=== PATIENT | male | born 1990 | race Caucasian/White ===

== ENCOUNTER → 2021-07-22 08:06 | Outpatient (CLI) | payer OTHER, SELFPAY ==
--- NOTE | 2021-07-22 08:10 | DI.MRI.S_ITS ---
PROCEDURE: MR LOWER LEG LT WO CON COMPARISON: None. INDICATIONS: STRAIN OF MUSCLE AT LOWER LEFT LEG TECHNIQUE: Noncontrast coronal and sagittal T1 spin echo and STIR, and axial T1 spin echo and T2 fast spin echo with fat saturation through the left lower leg. FINDINGS: Bones: No acute trabecular bone injury or osseous fracture. No abnormal marrow signal. Soft tissues: Within the medial head of the gastrocnemius muscle, there is an oval fluid collection measuring approximately 6.0 x 4.3 x 11.1 cm with intrinsic [id number] signal and a layering fluid-fluid level as well as a peripheral hypointense rim. Findings are consistent with a chronic hematoma. There is mild edema within the medial head of the gastrocnemius muscle and a small amount of overlying edema within the investing fascial layer. The lateral head of the gastrocnemius muscle is normal in signal intensity. The soleus muscle and remaining lower leg muscles are normal in signal intensity. Mild nonspecific subcutaneous soft tissue edema is seen superficial to the tibia anteriorly and along the superficial margin the peroneus muscles. IMPRESSION: Oval fluid collection measuring 6.0 x 4.3 x 11.1 cm at the medial superficial margin of the medial head of the gastrocnemius muscle is consistent with a chronic hematoma. There is mild surrounding intermuscular edema. Findings are consistent with a prior grade 2 strain of the medial head of the gastrocnemius muscle. Dictated by: Dawson Aguayo M.D. on 07/24/2021 at 9:19 Approved by: Dawson Aguayo M.D. on 07/24/2021 at 9:37
== END ==
PROVIDERS: Referring Provider Student in an Organized Health Care Education/Training Program; Visit Provider Student in an Organized Health Care Education/Training Program
DX: S86.912A Strain of unspecified muscle(s) and tendon(s) at lower leg level, left leg, initial encounter (principal); X58.XXXA Exposure to other specified factors, initial encounter
CPT/HCPCS: 73718